=== PATIENT | female | born 1970 | race Caucasian/White ===

== ENCOUNTER → 2021-05-18 | Outpatient (CLI) | payer OTHER ==
[~2021-05-18] MED LIST: ADIPEX-P37.5 MG PO; ALPRAZOLAM0.5 MG PO; AMMONIUM LAC; CELECOXIB200 MG PO; CLARITIN10 M2 PO; CYCLOBENZAPRINE10 MG PO; DESVENLAFAXINE50 MG PO; DITROPAN 5 MG TA5 MG PO; DOCUSATE SODIU100 MG PO; FERROUS SULFAT325 MG PO; FUROSEMIDE20 MG PO; HYDROCODON-ACE1 EAC6 PO; IBUPROFEN800 MG PO; LEVOCETIRIZINE D5 MG PO; LEVOFLOXACIN500 MG PO; LISINOPRIL20 MG PO; NEURONTIN400 MG PO; OMEPRAZOLE40 MG PO; POTASSIUM CHLO20 ME1 PO; TIZANIDINE HCL4 MG PO
[2021-05-18 14:01] LABS: HEMOGLOBIN 13.3 gm/dl (12.3-15.3); RED BLOOD COUNT 4.1 M/UL (4.00-5.10); WHITE BLOOD COUNT 7.9 K/UL (4.5-11.0)
[2021-05-18 14:22] LABS: BUN/CREATININE RATIO 15 (0-10)
== END ==
LOC: OPSV2 12:30
PROVIDERS: Podiatrist Foot & Ankle Surgery
DX: Z79.899 Other long term (current) drug therapy (principal)
CPT/HCPCS: 80048; 85025

== ENCOUNTER → 2021-05-22 | Day surgery (SDC) | payer OTHER | END | disposition home or self-care (01) | LOC: OR 10:59 | DX: M86.8X7 Other osteomyelitis, ankle and foot (principal); L97.529 Non-pressure chronic ulcer of other part of left foot with unspecified severity; I10 Essential (primary) hypertension; K21.9 Gastro-esophageal reflux disease without esophagitis; Z79.899 Other long term (current) drug therapy | CPT/HCPCS: 87070; 87205; J0690; J1100; J2250; J2405; J2704; J3010; J7030; J7120 ==